=== PATIENT | female | born 1945 | race Two or more races ===

== ENCOUNTER 2020-05-18 01:25 | Inpatient (IN) | payer OTHER ==
[~2020-05-18] VITALS: Ht 157.5 cm; Wt 64.4 kg
[2020-05-18] MEDS ORDERED: dilTIAZem HCL 60 MG TAB PO ONE (01:45)
[2020-05-18] MEDS ORDERED: dilTIAZem 25 MG/5 ML VIAL IV ONE ×2 (01:45→03:30)
[2020-05-18 02:08] LABS: Basophils # (auto) 0 10 ^3/uL (0-0.2); Basophils % (auto) 0.5 % (0.0-2.0); Eosinophils # (auto) 0.2 10 ^3/uL (0-0.8); Hematocrit 40.7 % (36.0-46.0); Lymphocytes # (auto) 2.5 10 ^3/uL (0.4-5.4); Lymphocytes % (auto) 32.6 % (10.0-50.0); Mean Corpuscular Hemoglobin 32.2 pg (28.0-32.0); Mean Corpuscular Hgb Conc. 34.5 g/dL (32.0-36.0); Mean Corpuscular Volume 93.5 fL (80.0-100.0); Monocytes # (auto) 0.6 10 ^3/uL (0-1.3); Monocytes % (auto) 7.7 % (0.0-12.0); Neutrophils # (auto) 4.3 10 ^3/uL (1.6-8.6); Neutrophils % (auto) 57.2 % (37.0-80.0); Nucleated Red Blood Cells % 0.1 %; Platelet Count (auto) 267 10^3/uL (140-450); Red Blood Cells 4.36 10^6/uL (4.0-5.20); Red Cell Distribution Width 13.6 % (11.8-14.3); White Blood Cell 7.6 10^3/uL (4.4-10.8)
[2020-05-18 02:27] LABS: INR 0.94 (0.9-1.15); Partial Thromboplastin Time 24.9 sec (23.0-31.2)
[2020-05-18 02:28] LABS: Alanine Aminotransferase 51 U/L (13-56); Anion Gap 9 (5-15); Aspartate Aminotransferase 32 U/L (15-37); BUN/Creatinine Ratio 22.5; Blood Urea Nitrogen 16 mg/dL (7-18); Calcium 9.5 mg/dL (8.5-10.1); Carbon Dioxide 25 mmol/L (21-32); Chloride 105 mmol/L (98-107); GFR African American 103 mL/min; GFR Non-African American 86 mL/min; Glucose 105 mg/dL (74-106); Magnesium 2.3 mg/dL (1.6-2.6); Potassium 3.8 mmol/L (3.5-5.1); Sodium 139 mmol/L (136-145)
[2020-05-18 02:33] LABS: Alkaline Phosphatase 59 U/L (45-117); Bilirubin, Total 0.4 mg/dL (0.2-1.0); Total Protein 8.5 g/dL (6.4-8.2)
[2020-05-18] MEDS ORDERED: NITROGLYCERIN 0.4 MG SL TAB SL PRN (06:00)
[2020-05-18] MEDS ORDERED: TEMAZEPAM 15 MG CAP PO PRN (06:00)
[2020-05-18] MEDS ORDERED: ONDANSETRON HCL 4 MG/2 ML VIAL IV PRN (06:00)
[2020-05-18] MEDS ORDERED: ACETAMINOPHEN 325 MG TAB PO PRN (06:00)
[2020-05-18] MEDS ORDERED: MORPHINE SULF INJ 2 MG/ML SYRINGE 1ML IV PRN (06:00)
[2020-05-18] MEDS ORDERED: LEVOTHYROXINE SODIUM 25 MCG TAB PO SCH (07:00)
[2020-05-18] MEDS: METOPROLOL TARTRATE 25 MG TAB PO SCH ×2 (09:19→22:00)
[2020-05-18] MEDS: FAMOTIDINE 20 MG TAB PO SCH (09:26)
[2020-05-18] MEDS: ENOXAPARIN SOD 40 MG/0.4 ML SYRINGE SC SCH (09:42)
[2020-05-18] MEDS ORDERED: LOSA25TA38 PO (10:36)
[2020-05-18] MEDS ORDERED: ATOR20TA50 PO (10:36)
[2020-05-18] MEDS ORDERED: LEVO100T83 PO (10:36)
[2020-05-18] MEDS ORDERED: CHOL500021 OR (10:37)
[2020-05-18] MEDS ORDERED: MULT-1018 PO (10:37)
[2020-05-18] MEDS ORDERED: ASCO100076 PO (10:37)
--- NOTE | 2020-05-18 15:05 | NUR ---
Telemetry admit from ER DAMARIS NORMAN admitted to Telemetry unit after SBAR received. Patient oriented to SHA TOURE, primary RN, unit, room, bed, and unit policies regarding patient care and visiting hours. Patient now on continuous telemetry monitoring, tele box # 30. Patient weighed by bedscale and encouraged to call if they need something. All questions and concerns addressed, patient verbalized understanding.
[2020-05-18 17:00] VITALS: BP 102/62
--- NOTE | 2020-05-18 19:39 | NUR ---
PT C/O OF CHEST PRESSURE. EKG PERFORMED. SINUS RHYTHM/ SINUS WILY SHOWN. NIGHT NURSE UPDATED.
--- NOTE | 2020-05-18 19:40 | NUR ---
Opening Shift Note Assume patient care from morning shift nurse. Morning shift RN ran EKG and reported normal sinus rhythm w/ HR 58. Patient is AOx4 w/ HOB at 30 degrees. Bed locked in lowest position and call light within reach. No current s/s of distress or SOB. Patient relaxing and watching TV. All questions answered at this time. Will continue to monitor.
[2020-05-18 20:00] VITALS: BP 118/59
[2020-05-18 22:00] VITALS: BP 132/64
[2020-05-18] MEDS: ATORVASTATIN 20 MG TAB PO SCH (22:30)
--- NOTE | 2020-05-18 22:30 | NUR ---
Patient Dizzy Patient said " I felt dizzy walking to bathroom." Current blood pressure is 118/59 and pulse 62. Patient AOx4 and laying in bed and not feeling dizzy at the moment. Patient told to call for assistance, patient verbally agreed to understanding. Will continue to monitor.
[2020-05-19] VITALS (7 sets, daily range): BP systolic 111–136; BP diastolic 64–80
[2020-05-19 07:11] LABS: Basophils # (auto) 0 10 ^3/uL (0-0.2); Basophils % (auto) 0.6 % (0.0-2.0); Eosinophils # (auto) 0.1 10 ^3/uL (0-0.8); Eosinophils % (auto) 2.3 % (0.0-7.0); Hematocrit 39.4 % (36.0-46.0); Hemoglobin 13.3 g/dL (12.2-16.2); Lymphocytes # (auto) 1.6 10 ^3/uL (0.4-5.4); Lymphocytes % (auto) 34.5 % (10.0-50.0); Mean Corpuscular Hemoglobin 31.6 pg (28.0-32.0); Mean Corpuscular Hgb Conc. 33.7 g/dL (32.0-36.0); Mean Corpuscular Volume 93.9 fL (80.0-100.0); Monocytes # (auto) 0.4 10 ^3/uL (0-1.3); Monocytes % (auto) 8.9 % (0.0-12.0); Neutrophils # (auto) 2.5 10 ^3/uL (1.6-8.6); Neutrophils % (auto) 53.7 % (37.0-80.0); Nucleated Red Blood Cells % 0.1 %; Platelet Count (auto) 231 10^3/uL (140-450); Red Cell Distribution Width 13.5 % (11.8-14.3); White Blood Cell 4.7 10^3/uL (4.4-10.8)
[2020-05-19 07:29] LABS: BUN/Creatinine Ratio 26.2; Calcium 8.5 mg/dL (8.5-10.1); Potassium 3.8 mmol/L (3.5-5.1)
[2020-05-19] MEDS: FAMOTIDINE 20 MG TAB PO SCH (10:57)
[2020-05-19] MEDS: ENOXAPARIN SOD 40 MG/0.4 ML SYRINGE SC SCH (10:57)
[2020-05-19] MEDS: METOPROLOL TARTRATE 25 MG TAB PO SCH (10:58)
--- NOTE | 2020-05-19 11:50 | NUR ---
Called Dannielle Perez that patient asked for Synthroid pill. No order for Synthroid as per E Dec. Dr. Dasilva said patient had too much Synthroid at home, no orders for Synthroid.
--- NOTE | 2020-05-19 13:20 | NUR ---
NADEEM Romero came over, said patient will have a pacemaker placement tomorrow, Saturday.
--- NOTE | 2020-05-19 19:30 | NUR ---
Opening Shift Note Assume patient care from morning shift nurse. Patient is AOx4 w/ HOB at 30 degrees. Bed locked in lowest position and call light within reach. No current s/s of distress or SOB. Patient relaxing in bed. All questions answered at this time. Will continue to monitor.
[2020-05-19] MEDS: ATORVASTATIN 20 MG TAB PO SCH (21:17)
[2020-05-20 05:00] VITALS: BP 131/73
[2020-05-20 07:18] LABS: Basophils # (auto) 0 10 ^3/uL (0-0.2); Basophils % (auto) 1.1 % (0.0-2.0); Eosinophils # (auto) 0.1 10 ^3/uL (0-0.8); Eosinophils % (auto) 2.4 % (0.0-7.0); Hematocrit 41.3 % (36.0-46.0); Hemoglobin 13.9 g/dL (12.2-16.2); Lymphocytes # (auto) 1.4 10 ^3/uL (0.4-5.4); Lymphocytes % (auto) 31.8 % (10.0-50.0); Mean Corpuscular Hemoglobin 31.7 pg (28.0-32.0); Mean Corpuscular Hgb Conc. 33.7 g/dL (32.0-36.0); Mean Corpuscular Volume 94.1 fL (80.0-100.0); Monocytes # (auto) 0.4 10 ^3/uL (0-1.3); Monocytes % (auto) 8.7 % (0.0-12.0); Neutrophils # (auto) 2.4 10 ^3/uL (1.6-8.6); Nucleated Red Blood Cells % 0.1 %; Platelet Count (auto) 232 10^3/uL (140-450); Red Blood Cells 4.39 10^6/uL (4.0-5.20); Red Cell Distribution Width 13.4 % (11.8-14.3); White Blood Cell 4.3 10^3/uL (4.4-10.8)
[2020-05-20 07:30] VITALS: BP 140/82
[2020-05-20 07:32] LABS: INR 0.99 (0.9-1.15); Partial Thromboplastin Time 25.7 sec (23.0-31.2)
[2020-05-20 07:33] LABS: BUN/Creatinine Ratio 23.1; Calcium 8.5 mg/dL (8.5-10.1); Potassium 3.9 mmol/L (3.5-5.1)
--- NOTE | 2020-05-20 08:10 | NUR ---
PATIENT TAKEN DOWN TO DAIRY QUALITY ASSURANCE OFFICER VIA GURNEY. PATIENT HAS NO S/S OF DISTRESS/SOB OR PAIN AT THIS TIME.
[2020-05-20] MEDS ORDERED: LIDOCAINE 2%HCL (LOCAL ANESTH.) INJ 20ML MDV ONE (08:58)
[2020-05-20 09:00] VITALS: BP 159/78
[2020-05-20] MEDS ORDERED: VANCOMYCIN HCL 1000 MG VL ONE (09:01)
[2020-05-20] MEDS ORDERED: fentaNYL CITRATE 100 MCG/2 ML VL ONE (09:01)
[2020-05-20] MEDS ORDERED: MIDAZOLAM HCL 1MG/1ML-2 ML VIAL ONE (09:01)
[2020-05-20] MEDS ORDERED: VANCOMYCIN 1GM/250ML 250 ML IV ONE (09:02)
[2020-05-20] MEDS: ENOXAPARIN SOD 40 MG/0.4 ML SYRINGE SC SCH (10:00)
[2020-05-20] MEDS: LOSARTAN POTASSIUM 25 MG TAB PO SCH (10:00)
[2020-05-20] MEDS: FAMOTIDINE 20 MG TAB PO SCH (10:00)
[2020-05-20] MEDS: SODIUM CHLORIDE 0.9% 500 ML IV SCH ×2 (10:45→13:15)
--- NOTE | 2020-05-20 11:07 | NUR ---
RECEIVED REPORT FROM WILI HEARN. PATIENT WILL BE BROUGHT UP TO ROOM AND CAN RESUME DIET.
[2020-05-20 17:00] VITALS: BP 147/81
--- NOTE | 2020-05-20 19:45 | NUR ---
CLOSING SHIFT NOTE ENDORSED CARE TO MATERIAL PLANNER RN ALEXANDRU. PATIENT HAS NO S/S OF DISTRESS/SOB OR PAIN AT THIS TIME.
[2020-05-20 22:00] VITALS: BP 145/78
[2020-05-20] MEDS: ATORVASTATIN 20 MG TAB PO SCH (22:53)
[2020-05-21 05:00] VITALS: BP 133/78
--- NOTE | 2020-05-21 07:50 | NUR ---
Opening Shift Note Assumed care of patient, awake and alert. No S/S of distress/SOB or pain. Instructed on POC and to call for assist PRN, will continue to monitor for changes Q1hr and PRN. Bed locked in lowest position with two side rails up and call light in reach.
[2020-05-21 08:00] VITALS: BP 142/72
[2020-05-21 08:59] VITALS: BP 142/72
--- NOTE | 2020-05-21 09:14 | NUR ---
SPOKE TO SUPERVISOR [employer] [place] PER DR CAPPS. NEED TO VERIFY IF PATIENT SWALLOWS PILLS OR NOT, PER [employer]PER[employer] [place] PATIENT CANNOT SWALLOW DUE TO PREVIOUS CVA. PER DR CAPPS THERE ARE A LOT OF PILLS TO CHANNELING MACHINE OPERATOR TO GT, SO I WILL CONTINUE TO CRUSH PILLS NEEDED. PER [place] CAREGIVER PATIENT HAS HAD G TUBE FOR ABOUT 2 YEARS AND HAD IT REPLACED 1 YEAR AGO. Addendum: 05/21/20 at 0918 by Justine Moreira RN WRONG NOTE WRONG PATIENT.
[2020-05-21] MEDS: LOSARTAN POTASSIUM 25 MG TAB PO SCH (10:33)
[2020-05-21] MEDS: FAMOTIDINE 20 MG TAB PO SCH (10:33)
[2020-05-21] MEDS: ENOXAPARIN SOD 40 MG/0.4 ML SYRINGE SC SCH (10:33)
--- NOTE | 2020-05-21 15:00 | NUR ---
SPOKE TO DR CAPPS IN REGARDS TO PATIENT C/O WEAKNESS VS 98.6, 93%, RR 16, HR IS SR 74 OCCASIONAL PAC BP 140/75 . PATIENT STATES SHE WOULD LIKE TO STAY ANOTHER DAY, PER DR CAPPS IT IS OKAY PATIENT WILL BE DISCHARGED IN THE AM.
[2020-05-21 16:57] VITALS: BP 145/76
--- NOTE | 2020-05-21 20:11 | NUR ---
NOTIFIED DR CINTRON OF PATIENT HAVING SOME PALPITATIONS AND WEAKNESS AND THEN SUBSIDED, ALSO MOWER SHARPENER SHOWED SINUS RHYTHM WITH OCCASIONAL PVC'S BUT NO CHANGES. PATIENT STATED SHE WAS FEELING A LITTLE ANXIETY. DR CINTRON PROVIDED NEW ORDER: XANAX 0.25 MG PO PRN Q4 HOURS. READ BACK AND CONFIRMED. WILL CARRY OUT.
[2020-05-21] MEDS ORDERED: ALPRAZolam 0.25 MG TAB PO PRN (20:15)
[2020-05-21] MEDS: ATORVASTATIN 20 MG TAB PO SCH (21:32)
[2020-05-21 22:00] VITALS: BP 106/65
[2020-05-22 05:00] VITALS: BP 101/68
[2020-05-22 08:00] VITALS: BP 101/63
[2020-05-22 09:00] VITALS: BP 101/63
[2020-05-22] MEDS: FAMOTIDINE 20 MG TAB PO SCH (10:00)
[2020-05-22] MEDS: ENOXAPARIN SOD 40 MG/0.4 ML SYRINGE SC SCH (10:00)
[2020-05-22] MEDS: LOSARTAN POTASSIUM 25 MG TAB PO SCH (10:00)
--- NOTE | 2020-05-22 11:15 | NUR ---
Discharge instructions given as ordered. Encourage to follow up with PMD as instructed. All questions and concerns addressed. Patient verbalized understanding. Medication reconciliation form completed and copy given to patient. No Home medications held in Pharmacy and none to be returned to patient, and no needed vaccines given. IV removed with catheter intact, pressure dressing applied. Telemetry unit returned to ICU. Patient taken to vehicle via wheelchair with all personal belongings, accompanied by staff and family member. Patient also has prescriptions in hand, as well as the [employer] wireless device provided by pacemaker lead customer service representative. No distress noted at time of departure.
== END 2020-05-22 11:30 | disposition home or self-care (01) | DRG 243 ==
LOC: ER 01:30 → TELE 01:31 → TELE-CENTR 15:20
PROVIDERS: ADMIT Nurse Practitioner; ATTEND Family Medicine
PROC: 0JH606Z Insertion of Pacemaker, Dual Chamber into Chest Subcutaneous Tissue and Fascia, Open Approach (ICD-10-PCS; principal; 2020-05-20)
PROC: 02HK3JZ Insertion of Pacemaker Lead into Right Ventricle, Percutaneous Approach (ICD-10-PCS; 2020-05-20)
PROC: 02H63JZ Insertion of Pacemaker Lead into Right Atrium, Percutaneous Approach (ICD-10-PCS; 2020-05-20)
DX: I49.5 Sick sinus syndrome (principal); D68.69 Other thrombophilia; I48.91 Unspecified atrial fibrillation; I10 Essential (primary) hypertension; E03.9 Hypothyroidism, unspecified; E78.5 Hyperlipidemia, unspecified; E05.80 Other thyrotoxicosis without thyrotoxic crisis or storm; Z79.890 Hormone replacement therapy; Z90.710 Acquired absence of both cervix and uterus; Z88.0 Allergy status to penicillin; Z82.49 Family history of ischemic heart disease and other diseases of the circulatory system; Z84.89 Family history of other specified conditions; Z79.899 Other long term (current) drug therapy
CPT/HCPCS: 33208; 36415; 71045; 80048; 80053; 83735; 83880; 84443; 84484; 85025; 85379; 85610; 85730; 93005; 93306; 96374; 96376; 99152; 99153; 99291; G0378; J2250

== ENCOUNTER 2020-07-08 23:45 | Inpatient (IN) | payer OTHER ==
[~2020-07-08] VITALS: Ht 149.9 cm; Wt 64.8 kg
[~2020-07-08 23:45] MED LIST: ASCO100076 PO; ATOR20TA50 PO; CHOL500021 OR; LEVO100T83 PO; LOSA25TA38 PO; MULT-1018 PO
[2020-07-09 00:52] LABS: Basophils # (auto) 0.1 10 ^3/uL (0-0.2); Basophils % (auto) 0.9 % (0.0-2.0); Eosinophils # (auto) 0.1 10 ^3/uL (0-0.8); Eosinophils % (auto) 1.5 % (0.0-7.0); Hematocrit 37.8 % (36.0-46.0); Hemoglobin 12.9 g/dL (12.2-16.2); Lymphocytes % (auto) 32.4 % (10.0-50.0); Mean Corpuscular Hemoglobin 32.4 pg (28.0-32.0); Mean Corpuscular Hgb Conc. 34.2 g/dL (32.0-36.0); Mean Corpuscular Volume 94.9 fL (80.0-100.0); Monocytes # (auto) 0.5 10 ^3/uL (0-1.3); Monocytes % (auto) 7.5 % (0.0-12.0); Neutrophils # (auto) 3.5 10 ^3/uL (1.6-8.6); Neutrophils % (auto) 57.7 % (37.0-80.0); Platelet Count (auto) 204 10^3/uL (140-450); Red Blood Cells 3.98 10^6/uL (4.0-5.20); Red Cell Distribution Width 13.1 % (11.8-14.3)
[2020-07-09 01:08] LABS: INR 1.06 (0.9-1.15); Partial Thromboplastin Time 31.5 sec (23.0-31.2)
[2020-07-09 01:21] LABS: Alanine Aminotransferase 40 U/L (13-56); Anion Gap 7 (5-15); Aspartate Aminotransferase 32 U/L (15-37); BUN/Creatinine Ratio 25.8; Blood Urea Nitrogen 16 mg/dL (7-18); Carbon Dioxide 25 mmol/L (21-32); Chloride 105 mmol/L (98-107); GFR African American 121 mL/min; GFR Non-African American 100 mL/min; Glucose 90 mg/dL (74-106); Magnesium 2.3 mg/dL (1.6-2.6); Sodium 137 mmol/L (136-145)
[2020-07-09 01:26] LABS: Alkaline Phosphatase 59 U/L (45-117); Bilirubin, Total 0.5 mg/dL (0.2-1.0); Total Protein 7.6 g/dL (6.4-8.2)
[2020-07-09] MEDS ORDERED: MORPHINE SULF INJ 2 MG/ML SYRINGE 1ML IV PRN (04:00)
[2020-07-09] MEDS ORDERED: METOPROLOL TARTRATE 1MG/1ML-5ML VIAL IV PRN (04:00)
[2020-07-09] MEDS ORDERED: SODIUM CHLORIDE 0.9% 1,000 ML IV SCH (04:00)
[2020-07-09] MEDS ORDERED: NITROGLYCERIN 0.4 MG SL TAB SL PRN ×2 (04:00)
[2020-07-09] MEDS ORDERED: ACETAMINOPHEN 325 MG TAB PO PRN (04:00)
[2020-07-09 05:46] VITALS: BP 148/73
[2020-07-09 05:50] VITALS: BP 148/73
[2020-07-09] MEDS: LEVOTHYROXINE SODIUM 100 MCG TAB PO SCH (07:11)
[2020-07-09 07:14] LABS: Basophils # (auto) 0 10 ^3/uL (0-0.2); Basophils % (auto) 0.6 % (0.0-2.0); Eosinophils # (auto) 0.1 10 ^3/uL (0-0.8); Eosinophils % (auto) 1.9 % (0.0-7.0); Hematocrit 36.7 % (36.0-46.0); Hemoglobin 12.9 g/dL (12.2-16.2); Lymphocytes # (auto) 1.7 10 ^3/uL (0.4-5.4); Lymphocytes % (auto) 36.4 % (10.0-50.0); Mean Corpuscular Hemoglobin 32.9 pg (28.0-32.0); Mean Corpuscular Hgb Conc. 35.1 g/dL (32.0-36.0); Mean Corpuscular Volume 93.9 fL (80.0-100.0); Monocytes # (auto) 0.4 10 ^3/uL (0-1.3); Monocytes % (auto) 7.8 % (0.0-12.0); Neutrophils # (auto) 2.6 10 ^3/uL (1.6-8.6); Neutrophils % (auto) 53.3 % (37.0-80.0); Platelet Count (auto) 191 10^3/uL (140-450); Red Blood Cells 3.91 10^6/uL (4.0-5.20); Red Cell Distribution Width 12.9 % (11.8-14.3); White Blood Cell 4.8 10^3/uL (4.4-10.8)
--- NOTE | 2020-07-09 07:30 | NUR ---
Opening note Assumed care of patient from NOC RN Juan Diego. Patient is AOx4 no s/s of distress or SOB noted. Patient is on room air, bed is in lowest locked position, side rails up x2 and call light is within reach. Updated patient on plan of care and patient verbalized understanding. Will continue to monitor.
[2020-07-09 07:44] LABS: Calcium 8.8 mg/dL (8.5-10.1); Potassium 3.8 mmol/L (3.5-5.1)
[2020-07-09 07:48] LABS: BUN/Creatinine Ratio 25.4
[2020-07-09 09:00] VITALS: BP 146/75
[2020-07-09] MEDS ORDERED: CLOPIDOGREL BISULFATE 75 MG TAB PO SCH (10:00)
[2020-07-09] MEDS ORDERED: CARVEDILOL 3.125 MG TAB PO SCH (10:00)
[2020-07-09] MEDS ORDERED: ASCORBIC ACID 1,000 MG TAB PO SCH (10:00)
[2020-07-09] MEDS ORDERED: ASPirin 81 mg TAB PO SCH (10:00)
--- NOTE | 2020-07-09 10:40 | NUR ---
Physician rounding Dr. Bhat at bedside. MD updated patient on plan of care. New orders received, will follow thorough continue to monitor.
[2020-07-09] MEDS ORDERED: FAMOTIDINE 20 MG TAB PO ONE (10:45)
[2020-07-09] MEDS: DOCUSATE SOD 100 MG CAP PO SCH (12:18)
[2020-07-09] MEDS: MULTIPLE VITAMIN TAB PO SCH (12:19)
[2020-07-09] MEDS: LOSARTAN POTASSIUM 25 MG TAB PO SCH ×2 (12:38→22:17)
--- NOTE | 2020-07-09 13:10 | NUR ---
Physician rounding Assumed care of patient from OZ Adamson. Per patient she has a Left heart cath scheduled with her PCP on 07-26. Per MD Fang patient can have procedure done here with Dr. Chapman on Saturday. Patient stated "I will speak to my family to make a decision." MD if patient agrees, bryan will be help for procedure. Will continue to monitor. Addendum: 07/09/20 at 1644 by DEACON LONG RN CORRECTION TO NOTE, NOTE SHOULD NOT SAY "ASSUMED CARE OF PATIENT FROM OZ HEARN."
[2020-07-09 13:11] VITALS: BP 123/71
--- NOTE | 2020-07-09 13:30 | NUR ---
Spoke with family Spoke with patients family. Updated them on consolation with Dr. Doll. Per family member patient has not decided on procedure. Per family member they will consult the patient. All questions and concerns addressed, patients daughter verbalized understanding.
--- NOTE | 2020-07-09 13:33 | NUR ---
Physician at nurses station Per Dr. Doll if patient agrees to Left heart cath on Saturday, eliquis will be held. Will follow thorough.
--- NOTE | 2020-07-09 14:20 | NUR ---
Spoke with family Spoke with patients daughter Shemar. Per Shemar patient agreed to do L heart cath on Saturday. Will confirm with patient.
--- NOTE | 2020-07-09 14:25 | NUR ---
Spoke with patient Informed patient regarding conversation with Shemar. Patient stated "i would like to go ahead with the procedure on Saturday. I spoke to my family about it and I agree to doing it here with Dr. Chapman." Answered all questions patient had, patient verbalized understanding. Will notify MD, will continue care.
[2020-07-09 16:49] VITALS: BP 116/66
--- NOTE | 2020-07-09 19:35 | NUR ---
Opening note Assumed care of patient from Morning shift RN. Patient is AOx4 no s/s of distress or SOB noted. Patient is on room air, bed is in lowest locked position, side rails up x2 and call light is within reach. Updated patient on plan of care and patient verbalized understanding. Will continue to monitor.
[2020-07-09] MEDS ORDERED: ATORVASTATIN 20 MG TAB PO SCH (22:00)
[2020-07-09] MEDS: APIXABAN 5 MG TAB PO SCH (22:00)
[2020-07-09] MEDS: ATORVASTATIN 20 MG TAB PO SCH (22:17)
[2020-07-09 22:31] VITALS: BP 129/71
[2020-07-10 05:30] VITALS: BP 133/75
[2020-07-10] MEDS: LEVOTHYROXINE SODIUM 100 MCG TAB PO SCH (06:30)
[2020-07-10] MEDS ORDERED: LEVO75TA50 PO (06:49)
[2020-07-10] MEDS ORDERED: METO25TA5 PO (06:49)
[2020-07-10] MEDS ORDERED: ALPR0.5T7 PO (06:49)
[2020-07-10] MEDS ORDERED: APIX5TAB PO (06:49)
--- NOTE | 2020-07-10 07:35 | NUR ---
Opening note Assumed care of patient from NOC DHIRAJ Romero Patient is AOx4 no s/s of distress or SOB noted. Patient is on room air, bed is in lowest locked position, side rails up x2 and call light is within reach. Updated patient on plan of care and patient verbalized understanding. Patient stated "I would like to clean up this morning, could i get things to clean up?" Provided patient with towels and new gown. Will continue to monitor.
[2020-07-10 09:00] VITALS: BP 144/83
[2020-07-10] MEDS: APIXABAN 5 MG TAB PO SCH ×2 (10:00→22:00)
[2020-07-10] MEDS: DOCUSATE SOD 100 MG CAP PO SCH (10:38)
[2020-07-10] MEDS: FAMOTIDINE 20 MG TAB PO SCH (10:38)
[2020-07-10] MEDS: MULTIPLE VITAMIN TAB PO SCH (10:38)
[2020-07-10] MEDS: LOSARTAN POTASSIUM 25 MG TAB PO SCH ×2 (10:39→23:04)
--- NOTE | 2020-07-10 11:38 | NUR ---
Physician rounding Dr. Doll at bedside. MD updated patient on plan of care, patient verbalized understanding. No new orders received.
--- NOTE | 2020-07-10 12:00 | NUR ---
physician rounding Dr. Lantigua at bedside. MD updated patient on plan of care. Patient verbalized understanding. New orders received to request medical records.
[2020-07-10 13:00] VITALS: BP 146/76
--- NOTE | 2020-07-10 16:50 | NUR ---
Called patients cardiology office Called [facility], and received fax number [phone]. Medical record request form was faxed. Original copy placed in patient chart.
[2020-07-10 16:54] VITALS: BP 135/71
--- NOTE | 2020-07-10 19:08 | NUR ---
end of shift note care endorsed to NOC DHIRAJ Romero. No s/s of distress noted.
--- NOTE | 2020-07-10 19:15 | NUR ---
Opening note Assumed care of patient from Le RN. Patient is AOx4 no s/s of distress or SOB noted. Patient is on 2L via nasal cannula, bed is in lowest locked position, side rails up x2 and call light is within reach. Updated patient on plan of care and patient verbalized understanding. Will continue to monitor.
[2020-07-10 22:00] VITALS: BP 155/81
[2020-07-10] MEDS: ALPRAZolam 0.5 MG TAB PO SCH (23:05)
[2020-07-10] MEDS: ATORVASTATIN 20 MG TAB PO SCH (23:05)
[2020-07-11 05:00] VITALS: BP 117/82
[2020-07-11] MEDS: ALPRAZolam 0.5 MG TAB PO SCH ×2 (06:00→12:58)
[2020-07-11] MEDS: LEVOTHYROXINE SODIUM 100 MCG TAB PO SCH (06:35)
[2020-07-11 07:07] LABS: Basophils # (auto) 0 10 ^3/uL (0-0.2); Basophils % (auto) 0.8 % (0.0-2.0); Eosinophils # (auto) 0.1 10 ^3/uL (0-0.8); Eosinophils % (auto) 1.8 % (0.0-7.0); Hematocrit 38.1 % (36.0-46.0); Hemoglobin 13.3 g/dL (12.2-16.2); Lymphocytes # (auto) 1.8 10 ^3/uL (0.4-5.4); Lymphocytes % (auto) 33.8 % (10.0-50.0); Mean Corpuscular Hemoglobin 32.7 pg (28.0-32.0); Mean Corpuscular Hgb Conc. 34.9 g/dL (32.0-36.0); Mean Corpuscular Volume 93.7 fL (80.0-100.0); Monocytes # (auto) 0.4 10 ^3/uL (0-1.3); Monocytes % (auto) 7.7 % (0.0-12.0); Neutrophils % (auto) 55.9 % (37.0-80.0); Nucleated Red Blood Cells % 0.1 %; Platelet Count (auto) 197 10^3/uL (140-450); Red Blood Cells 4.07 10^6/uL (4.0-5.20); Red Cell Distribution Width 12.8 % (11.8-14.3); White Blood Cell 5.3 10^3/uL (4.4-10.8)
[2020-07-11 07:23] LABS: Anion Gap 3 (5-15); Blood Urea Nitrogen 16 mg/dL (7-18); Calcium 9.1 mg/dL (8.5-10.1); Carbon Dioxide 28 mmol/L (21-32); Chloride 106 mmol/L (98-107); GFR African American 117 mL/min; GFR Non-African American 96 mL/min; Glucose 84 mg/dL (74-106); Potassium 3.8 mmol/L (3.5-5.1); Sodium 137 mmol/L (136-145)
[2020-07-11 08:42] VITALS: BP 115/72
[2020-07-11 09:26] LABS: INR 1.03 (0.9-1.15); Partial Thromboplastin Time 26.5 sec (23.0-31.2)
--- NOTE | 2020-07-11 09:52 | NUR ---
PT TAKEN TO PRELIMINARY SCHOOL PSYCHOLOGIST. NO S/S OF DISTRESS.
[2020-07-11] MEDS: APIXABAN 5 MG TAB PO SCH (10:00)
[2020-07-11] MEDS ORDERED: LIDOCAINE 2%HCL (LOCAL ANESTH.) INJ 20ML MDV ONE (10:05)
[2020-07-11] MEDS ORDERED: fentaNYL CITRATE 100 MCG/2 ML VL ONE (10:11)
[2020-07-11] MEDS ORDERED: ANGIOMAX 250 MG VIAL IV ONE (10:11)
[2020-07-11] MEDS ORDERED: MIDAZOLAM HCL 1MG/1ML-2 ML VIAL ONE (10:12)
[2020-07-11] MEDS ORDERED: SODIUM CHL 0.9% 0 ML ONE (10:12)
[2020-07-11] MEDS ORDERED: VERAPAMIL 2.5MG/ML INJ 2ML VIAL IV ONE (10:28)
[2020-07-11] MEDS ORDERED: HEPARIN SODIUM (PORCINE) 5000 UNITS/ML 1ML VIAL ONE (10:28)
--- NOTE | 2020-07-11 11:00 | NUR ---
Patient brought to recovery via bed, report received from DHIRAJ Gonzalez and DHIRAJ Rush. Patient is AO x 4, no s/s of distress/SOB. Right radial site is benign, no s/s of bleeding or hematoma formation. Positive circulation, sensation and movement noted to bilateral extremities. Continuous pulse ox applied to right first finger. Patient educated on post-procedure care, verbalized understanding.
--- NOTE | 2020-07-11 11:19 | NUR ---
Patient resting in bed with eyes closed, breaths are even and unlabored. No s/s of distress. Right radial site is unchanged.
--- NOTE | 2020-07-11 11:25 | NUR ---
[employer] tech at bedside. Per tech, device has been interrogated.
--- NOTE | 2020-07-11 11:42 | NUR ---
Report given to primary RN, Garo.
--- NOTE | 2020-07-11 11:50 | NUR ---
MD Maciel present at bedside Updated patient on POC and plan for discharge this evening. Patient verbalized understanding, all questions answered at this time.
--- NOTE | 2020-07-11 11:56 | NUR ---
Patient taken to telemetry unit via bed, machine preservative filler in place. No s/s of distress noted upon departure. Primary RNGaro present at bedside to witness right radial site, benign, no s/s of bleeding or hematoma formation. Bed set in lowest locked position, side rails up x 2, call light is within reach and bed alarm set on for safety. Care endorsed to DHIRAJ Wyman.
--- NOTE | 2020-07-11 12:00 | NUR ---
PT ARRIVED TO UNIT VIA BED. AWAKE, ALERT, ORIENTED x4 NO S/S OF DISTRESS. EFFORTLESS BREATHING ON ROOM AIR. TR BAND IN PLACE TO RIGHT WRIST CDI AT MOMENT. BUE SENSATION INTACT, +2 PULSES BILATERALLY, SKIN WARM TO TOUCH. COMFORTABLE ENVIRONMENT PROVIDED. BED LOCKED AND IN LOWEST POSITION, CALL LIGHT WITHIN REACH. WILL CONTINUE TO MONITOR.
--- NOTE | 2020-07-11 12:05 | NUR ---
PER MD CASE PT WILL BE DC'D AFTER DINNER IF NO COMPLICATIONS FROM PROCEDURE.
--- NOTE | 2020-07-11 12:10 | NUR ---
HERON HELD PER MD EVIE GRAYSON.
--- NOTE | 2020-07-11 12:15 | NUR ---
BAND DEFLATION INITIATED; 2ml PER INSTRUCTIONS, NO COMPLICATIONS NOTED.
[2020-07-11] MEDS: LOSARTAN POTASSIUM 25 MG TAB PO SCH (12:20)
[2020-07-11] MEDS: FAMOTIDINE 20 MG TAB PO SCH (12:20)
[2020-07-11] MEDS: DOCUSATE SOD 100 MG CAP PO SCH (12:20)
[2020-07-11] MEDS: MULTIPLE VITAMIN TAB PO SCH (12:21)
[2020-07-11 13:00] VITALS: BP 108/70
--- NOTE | 2020-07-11 13:40 | NUR ---
TR BAND DEFLATION COMPLETED, GAUZE WITH TEGADERM PLACE TO RADIAL SITE. ASYMPTOMATIC AT MOMENT. SENSATION INTACT, SKIN WARM TO TOUCH <3SEC CAP REFILL. CALL LIGHT WITHIN REACH. WILL CONTINUE TO MONITOR.
[2020-07-11 17:00] VITALS: BP 108/59
--- NOTE | 2020-07-11 18:30 | NUR ---
PT AWAKE, ALERT, ORIENTED x4 DENIES ANY DISCOMFORT. EFFORTLESS BREATHING ON ROOM AIR. SENSATION INTACT, +2 PULSES, SKIN WARM TO TOUCH, <3 SEC. CAP REFILL TO BUE. CALL LIGHT WITHIN REACH.
[2020-07-11 18:55] VITALS: BP 146/73
--- NOTE | 2020-07-11 19:10 | NUR ---
Opening Shift Note Assumed care of patient, awake and alert. No S/S of distress/SOB or pain. Safety measures in place, bed in lowest locked position, call light within reach. Instructed on POC and discharge plan and to call for assist PRN, will continue to monitor for changes Q1hr and PRN.
--- NOTE | 2020-07-11 21:15 | NUR ---
Patient family member at hospital entrance, IV discontinued; catheter intact, pt tolerated well, pressure dressing applied. Tele box removed and sent to tele station. Pt belongings collected and sent with patient, ID bands removed. Pt escorted by this RN to family vehicle via wheelchair. All questions and concerns addressed at this time.
== END 2020-07-11 21:25 | disposition home or self-care (01) | DRG 287 ==
LOC: ER 23:46 → TELE 23:47 → TELE-CENTR 07-09 04:56
PROVIDERS: ADMIT Hospitalist; ATTEND Internal Medicine
PROC: 4A023N7 Measurement of Cardiac Sampling and Pressure, Left Heart, Percutaneous Approach (ICD-10-PCS; principal; 2020-07-11)
PROC: B2111ZZ Fluoroscopy of Multiple Coronary Arteries using Low Osmolar Contrast (ICD-10-PCS; 2020-07-11)
PROC: B2151ZZ Fluoroscopy of Left Heart using Low Osmolar Contrast (ICD-10-PCS; 2020-07-11)
DX: R07.89 Other chest pain (principal); I10 Essential (primary) hypertension; I49.5 Sick sinus syndrome; E03.9 Hypothyroidism, unspecified; F41.9 Anxiety disorder, unspecified; E78.5 Hyperlipidemia, unspecified; I48.91 Unspecified atrial fibrillation; Z95.0 Presence of cardiac pacemaker; Z86.711 Personal history of pulmonary embolism; Z20.828 Contact with and (suspected) exposure to other viral communicable diseases
CPT/HCPCS: 36415; 71045; 80048; 80053; 80061; 83735; 83880; 84443; 84484; 85025; 85379; 85610; 85730; 87081; 93005; 93458; 93970; 96360; 99152; G0378; J2250